=== PATIENT | female | born 1960 | race Caucasian/White ===

== ENCOUNTER 2018-01-22 20:19 | Emergency (ER) | payer MEDICAID ==
[2018-01-22] MEDS ORDERED: CLINDAMYCIN 150 MG CAP PO ONE (20:57)
--- NOTE | 2018-01-22 20:59 | Emergency Department Record ---
History of Present Illness - General Stated complaint: RASH ON CHEST Time Seen by Provider: 01/22/18 20:57 Source: Patient Mode of Arrival: Ambulatory Limitations: No limitations - History of Present Illness Initial comments: 57 yo female presents to ED for evaluation of a rash to the right anterior chest that began approximately 1 week ago. Patient reports that she noticed a possible bite to the chest wall that became itchy, reports that her redness symptoms worsened yesterday after [id number] her chest wall for almost 1 week. Patient denies fevers, chills, or recent illness. Patient denies history of DM. MD complaint: Rash Onset/Timin -: Week(s) Location: Chest Severity: Moderate Quality: Aching Consistency: Constant Improves with: None Worsens with: None Context: None Associated symptoms: Denies other symptoms Treatments Prior to Arrival: OTC topical medication - Related Data Previous Rx's Medication Instructions Recorded Clindamycin HCl 300 mg PO QID #39 capsule 01/22/18 Allergies Allergy/AdvReac Type Severity Reaction Status Date / Time No Known Drug Allergies Allergy Unverified 12/06/17 08:53 Review of Systems Constitutional: Denies: Chills, Fever, Malaise, Night sweats Eyes: Denies: Eye discharge, Eye pain ENT: Denies: Congestion, Ear pain, Epistaxis Respiratory: Denies: Cough, Dyspnea Cardiovascular: Denies: Chest pain, Dyspnea on exertion Endocrine: Denies: Fatigue, Heat or cold intolerance Gastrointestinal: Denies: Abdominal pain, Nausea, Vomiting Genitourinary: Denies: Incontinence, Retention Musculoskeletal: Denies: Arthralgia, Back pain Skin: Reports: Rash. Denies: Bruising, Change in color, Change in hair/nails Neurological: Denies: Abnormal gait, Confusion, Seizure Psychiatric: Denies: Anxiety Hematological/Lymphatic: Denies: Anemia, Blood Clots Physical Exam - General General Appearance: Alert, Oriented x3, Cooperative, Mild distress Limitations: No limitations - Head Head exam: Atraumatic, Normocephalic, Normal inspection Head exam detail: negative: Abrasion, Contusion, Sewell's sign, General tenderness, Hematoma, Laceration - Eye Eye exam: Normal appearance. negative: Conjunctival injection, Periorbital swelling, Periorbital tenderness, Scleral icterus - ENT Ear exam: negative: Auricular hematoma, Auricular trauma Nasal Exam: negative: Active bleeding, Discharge, Dried blood, Foreign body Mouth exam: negative: Drooling, Laceration, Muffled voice, Tongue elevation - Neck Neck exam: Normal inspection. negative: Meningismus, Tenderness - Respiratory Respiratory exam: Normal lung sounds bilaterally. negative: Rales, Respiratory distress, Rhonchi, Stridor - Cardiovascular Cardiovascular Exam: Regular rate, Normal rhythm, Normal heart sounds - GI/Abdominal GI/Abdominal exam: Soft. negative: Rebound, Rigid, Tenderness - Rectal Rectal exam: Deferred - exam: Deferred - Extremities Extremities exam: Normal inspection. negative: Calf tenderness, Pedal edema, Tenderness - Back Back exam: Denies: CVA tenderness (R), CVA tenderness (L) - Neurological Neurological exam: Alert, Normal gait, Oriented X3 - Psychiatric Psychiatric exam: Normal affect, Normal mood - Skin Skin exam: Erythema Type of lesion: negative: abrasion Distribution of rash: Chest Course - Reevaluation(s) Reevaluation #1: 01/22/18 21:19 Area to the right anterior chest wall appears erythematous with mild induration present, no fluctuance. Symptoms appear c/c a secondary cellulitis following a possible initiate insect bite. Will treat with Clindamycin with instructions to return for any worsening of her symptoms. Disposition Disposition: Discharge Clinical Impression: Cellulitis Qualifiers: Site of cellulitis: trunk Site of cellulitis of trunk: chest wall Qualified Code(s): L03.313 - Cellulitis of chest wall Disposition: Home, Self-Care Condition: (2) Stable Instructions: Cellulitis (ED) Additional Instructions: Return to ED if your symptoms worsen or if you have any concerns. Clindamycin as directed. Follow-up with your family doctor in 3-5 days as directed. Prescriptions: Clindamycin HCl 300 mg PO QID #39 capsule Time of Disposition: 20:59 Quality - Quality Measures Quality Measures: N/A - Blood Pressure Screening Does Patient Have Any of the Following: Active Dx of HTN Blood Pressure Classification: Hypertensive Reading Systolic Measurement: 131 Diastolic Measurement: 90 Screening for High Blood Pressure: Patient Exclusion, Hx of HTN [[id number]]
== END 2018-01-22 21:35 | disposition home or self-care (01) ==
LOC: ER 20:19
DX: L03.313 Cellulitis of chest wall (principal); I10 Essential (primary) hypertension
CPT/HCPCS: 99282

== ENCOUNTER 2019-03-22 09:08 | Day surgery (SDC) | payer MEDICAID ==
[2019-03-22] MEDS ORDERED: LIDOCAINE 2% MDV (20MG/ML) 20ML VIAL IV ONE (09:09)
[2019-03-22] MEDS ORDERED: PROPOFOL 10 MG/ML VIAL IV ONE (09:09)
--- NOTE | 2019-03-23 17:20 | Operative Note ---
DATE: 03/22/2019 OPERATION: ESOPHAGOGASTRODUODENOSCOPY with biopsy and Tee dilation. PREOPERATIVE DIAGNOSIS: Chronic heartburn and episodic dysphagia. POSTOPERATIVE DIAGNOSES: 1. GE junction ring. 2. Irregular squamocolumnar border. PROCEDURE: After informed consent was obtained from the patient, he was placed in the left lateral decubitus position in the endoscopy suite, sedated and monitored by the department of anesthesia. A well-lubricated [id number] gastroscope was placed in the posterior oropharynx under direct visualization and passed to the proximal esophagus. The proximal, mid, and distal esophagus were examined. The GE junction was slightly irregular. There was also a large-caliber stricture. The gastric body, antrum, pylorus, duodenal bulb and sweep were unremarkable. J-turn views of the proximal stomach were unremarkable. The endoscope was straightened. The squamocolumnar border was biopsied and endoscope removed from the patient. At this point, a 52-Syriac Tee dilator was passed without resistance to the level of the GE junction and removed. The endoscope was reinserted. No deep tears were noted. RECOMMENDATIONS: The patient should resume her medications and diet and follow her symptoms. As always, thank you for allowing me to participate in the healthcare of your patients. MARY
== END 2019-03-22 11:40 | disposition home or self-care (01) ==
LOC: HOP 09:08
PROVIDERS: ATTEND Internal Medicine Gastroenterology
DX: R12 Heartburn (principal); R13.10 Dysphagia, unspecified; K21.0 Gastro-esophageal reflux disease with esophagitis; K31.9 Disease of stomach and duodenum, unspecified; K31.89 Other diseases of stomach and duodenum; E78.00 Pure hypercholesterolemia, unspecified; I10 Essential (primary) hypertension; E03.9 Hypothyroidism, unspecified; J45.909 Unspecified asthma, uncomplicated